=== PATIENT | female | born 1965 | race Caucasian/White ===

== ENCOUNTER → 2022-03-10 10:55 | Outpatient (CLI) | payer OTHER, SELFPAY ==
--- NOTE | ~2022-03-10 | US_ITS ---
EXAMINATION: US carotid duplex BI DATE: 03/10/2022 12:10 INDICATION: Occlusion and stenosis of unspecified carotid artery on outside institution imaging TECHNIQUE: Grayscale, color Doppler, and pulsed Doppler images of the cervical carotid arteries were obtained. The degree of vessel stenosis is placed in one of the following categories: normal, <50%, 5 0-69%, >=70% but less than near-occlusion, near-occlusion, or total occlusion. Note that percent sten osis relative to normal distal artery lumen diameter is indirectly measured from velocity measurement s as described by Derek, et al. Radiology 2003; 229:340-346. COMPARISON: None. FINDINGS: RIGHT: The right common carotid artery (CCA) peak systolic velocity (PSV) is 50 cm/s. The right internal car otid artery (ICA) PSV is 75 cm/s. The right ICA end-diastolic velocity (EDV) is 30 cm/s. The right IC A/CCA PSV ratio is 1.5. Grayscale and color Doppler images yield an estimate of <50% diameter reducti on from plaque in the ICA. The external carotid artery (ECA) PSV is 78 cm/s. There is antegrade flow in the right vertebral artery. LEFT: The left CCA PSV is 60 cm/s. The left ICA PSV is 73 cm/s. The left ICA EDV is 17 cm/s. The left ICA/C CA PSV ratio is 1.2. Grayscale and color Doppler images yield an estimate of <50% diameter reduction from plaque in the ICA. The ECA PSV is 98 cm/s. There is antegrade flow in the left vertebral artery. IMPRESSION: 1. <50% stenosis in the right internal carotid artery. 2. <50% stenosis in the left internal carotid artery. Reviewed, dictated and finalized at location A. BRUSHER MACHINE
--- NOTE | ~2022-03-10 | MR_ITS ---
EXAMINATION: MR cervical spine wo con DATE: 03/10/2022 11:36 INDICATION: Cervical radiculopathy. Neck pain radiating to the left arm. TECHNIQUE: Magnetic resonance imaging (MRI) of the cervical spine was performed without intravenous c ontrast. Sequences included sagittal T2-weighted FSE, sagittal T2-weighted FS FSE, sagittal T1-weight ed FSE, axial MERGE, and axial T2-weighted FSE. COMPARISON: None FINDINGS: There is 2 mm retrolisthesis of C3 on C4, C4 on C5, and C5 on C6. There is 7 mm anterolisth esis of C7 on T1. There are changes of anterior fusion procedure at C7-T1. There is severely decrease d disc height at C3-C4 and C4-C5 and moderately decreased disc height at C5-C6 and C6-C7 with endplat e remodeling. The spinal cord signal intensity is normal. The following disc levels are specifically discussed: C2-C3: The disc does not extend beyond the endplate margin. There is mild left uncovertebral joint os teoarthritis. There is mild right and severe left facet joint osteoarthritis. There is mild left neur al foraminal stenosis. There is no central canal stenosis. C3-C4: The disc is bulging. There is severe bilateral uncovertebral joint osteoarthritis. There is mi ld bilateral facet joint osteoarthritis. There is moderate right and mild left neural foraminal steno sis. There is mild central canal stenosis. C4-C5: The disc is bulging. There is severe bilateral uncovertebral joint osteoarthritis. There is mo derate bilateral facet joint osteoarthritis. There is moderate bilateral neural foraminal stenosis. T here is mild central canal stenosis. C5-C6: The disc is bulging. There is severe bilateral uncovertebral joint osteoarthritis. There is se manuel bilateral facet joint osteoarthritis. There is moderate bilateral neural foraminal stenosis. The re is mild central canal stenosis. C6-C7: The disc is bulging. There is severe bilateral uncovertebral joint osteoarthritis. There is se manuel bilateral facet joint osteoarthritis. There is moderate bilateral neural foraminal stenosis. The re is mild central canal stenosis. C7-T1: There is severe bilateral uncovertebral joint hypertrophy. There is severe bilateral facet eleuterio nt osteoarthritis. There is moderate right and severe left neural foraminal stenosis. There is mild c entral canal stenosis. IMPRESSION: 1. Severe cervical spondylosis. 2. Anterior fusion procedure at C7-T1. Reviewed, dictated and finalized at location E. [facility] FRAME OPERATOR
== END ==
PROVIDERS: PCP Internal Medicine; Visit Provider Nurse Practitioner
DX: M47.812 Spondylosis without myelopathy or radiculopathy, cervical region (principal); M54.12 Radiculopathy, cervical region; I65.23 Occlusion and stenosis of bilateral carotid arteries; Z98.1 Arthrodesis status
CPT/HCPCS: 72141; 93880

== ENCOUNTER 2024-07-25 13:45 | Outpatient (CLI) | payer BC, SELFPAY ==
--- NOTE | ~2024-07-25 | XR_ITS ---
XR hip RT min 2V 07/25/2024 14:35 Indication: Right hip pain Procedure: 2 views right hip Comparison: No prior studies for comparison. Findings: There is anatomic alignment. No significant joint space narrowing. No fracture or traumatic malalignment. No focal soft tissue abnormality. No foreign bodies. Impression: 1: No significant bone or joint abnormality. Reviewed, dictated and finalized at location A. Impression: 1: No significant bone or joint abnormality.
--- NOTE | ~2024-07-25 | US_ITS ---
EXAM: Focused ultrasound examination of the soft tissues of the right lower extremity HISTORY: R22.9 - Localized swelling, mass and lump, unspecified TECHNIQUE: Sonographic evaluation of the soft tissues of the right lower extremity were performed ass essing grayscale appearance and color Doppler flow. COMPARISON: None. FINDINGS: Sonographic evaluation of the soft tissues of the right lower extremity demonstrate 3 distinct areas of palpable concern. Within the first area of palpable concern along the proximal medial bony prominence just below right knee is a well-circumscribed focus of increased echogenicity measuring 4.3 x 4.7 x 2.4 mm, consistent with a small lipoma. Within the second area of palpable concern along the posterior lower leg, are benign fibrofatty and f ibromuscular elements without a cystic or solid lesion of concern. Within the third area of palpable concern along the lateral right thigh no sonographic abnormality is appreciated. IMPRESSION: No sonographic abnormality is appreciated within the lateral right thigh or the posterior lower leg o n focused ultrasound examination. Subcentimeter lipoma along the anterior medial margin of the right lower leg. Reviewed, dictated and finalized at location A. IMPRESSION: No sonographic abnormality is appreciated within the lateral right thigh or the posterior lower leg on focused ultrasound examination. Subcentimeter lipoma along the anterior medial margin of the right lower leg.
--- NOTE | ~2024-07-25 | US_ITS ---
EXAMINATION: US venous doppler LE RT DATE: 07/25/2024 14:39 INDICATION: Right lower extremity discomfort TECHNIQUE: Grayscale ultrasound images without and with compression and Doppler ultrasound images of the right lower extremity veins were obtained. COMPARISON: None. FINDINGS: The visualized portions of right common femoral vein, profunda (deep) femoral vein, femoral vein, pop liteal vein, peroneal veins, posterior tibial veins, and greater saphenous vein outflow are patent. Within the right popliteal fossa is a well-circumscribed anechoic avascular focus measuring 21 mm for which a Funes's cyst is suspected. IMPRESSION: No deep venous thrombosis. Right-sided Funes's cyst cyst. Reviewed, dictated and finalized at location A.
== END 2024-07-25 13:46 | disposition home or self-care (01) ==
PROVIDERS: PCP Internal Medicine; Visit Provider Clinical Nurse Specialist
DX: D17.23 Benign lipomatous neoplasm of skin and subcutaneous tissue of right leg (principal); M71.21 Synovial cyst of popliteal space [Baker], right knee; M25.551 Pain in right hip
CPT/HCPCS: 73502; 76882; 93971

== ENCOUNTER 2024-09-27 14:50 | Outpatient (CLI) | payer BC, SELFPAY ==
--- NOTE | ~2024-09-27 | MR_ITS ---
MRI of the brain Clinical History: Unspecified signs and symptoms of nervous system Technique: Axial and sagittal T1-weighted images were acquired. These were followed by axial T2-weigh edward, diffusion weighted, gradient, and FLAIR images. Following intravenous administration of 12 cc Pr oHance gadolinium, T1-weighted fat-sat imaging was performed in the axial and sagittal planes. Findings: No abnormal signal seen in the brain parenchyma. No acute infarct, intracranial hemorrhage, or mass lesion. Ventricles and subarachnoid spaces are unremarkable. Orbits are unremarkable. Paranasal sinuses and m astoid air cells are clear. Major intracranial flow voids are intact. Sagittal midline structures are intact. No abnormal postcontrast enhancement identified. IMPRESSION: Normal exam. Reviewed, dictated and finalized at location M. IMPRESSION: Normal exam.
== END 2024-09-27 14:51 | disposition home or self-care (01) ==
PROVIDERS: PCP Internal Medicine; Visit Provider Clinical Nurse Specialist
DX: R29.90 Unspecified symptoms and signs involving the nervous system (principal)
CPT/HCPCS: 70553; A9579

== ENCOUNTER 2024-10-17 08:42 | Outpatient (CLI) | payer BC, SELFPAY ==
--- NOTE | ~2024-10-17 | MR_ITS ---
MRI of the lumbar spine Clinical History: Back pain Technique: Axial T2-weighted images, and sagittal T1-weighted, T2-weighted, and T2 fat-sat images wer e acquired. Findings: No acute fracture seen. There is 4 mm anterolisthesis of L2 over L3. No suspicious bone mar row signal abnormality seen. At L1-L2, there is minimal disc bulge with mild facet arthropathy. No central canal stenosis. There i s minimal left neural foraminal narrowing. Right neural foramen preserved. At L2-L3, there is moderate to advanced degenerative disc narrowing. There is diffuse disc bulge/unco vering with severe facet arthropathy. No enrique central canal stenosis. There is severe left neural fo raminal narrowing and mild to moderate right neural foraminal narrowing. At L3-L4, there is moderate degenerative disc narrowing. There is diffuse disc bulge with severe face t arthropathy. No central canal stenosis. There is severe right neural foraminal narrowing. Left neur al foramen preserved. At L4-L5, there is no significant disc bulge or herniation. There is moderate facet arthropathy. No c entral canal stenosis or left neural foraminal narrowing. There is mild right neural foraminal narrow ing. At L5-S1, there is minimal disc bulge with moderate to advanced facet arthropathy. No central canal s tenosis. There is mild right neural foraminal narrowing. Left neural foramen preserved. Paravertebral soft tissues are unremarkable. Impression: Moderate degenerative spondylosis, worst at L2-L3 and L3-L4. 4 mm anterolisthesis of L2 over L3. Reviewed, dictated and finalized at [facility]. Impression: Moderate degenerative spondylosis, worst at L2-L3 and L3-L4. 4 mm anterolisthesis of L2 over L3.
--- NOTE | ~2024-10-17 | CT_ITS ---
EXAMINATION: CT cervical spine wo con DATE: 10/17/2024 09:14 INDICATION: cervical stenosis TECHNIQUE: Computed tomography (CT) of the cervical spine was performed without intravenous contrast. Automated exposure control and iterative reconstruction technique were employed. The dose-length pro duct was 266.99 mGy-cm. COMPARISON: MR C-spine 03/10/2022. FINDINGS: Uncomplicated ACDF hardware spanning C3-5 and C7-T1, interbody devices in good position. Posterior fu aroldo hardware spanning C2-T4. No hardware fracture or abnormal perihardware lucency in the posterior hardware. The right T2 pedicle screw projects minimally beyond the cortex, of doubtful clinical signi ficance. The bilateral pedicle screws at C2 projects minimally into the C1-C2 disc space. The bilater al pedicle screws at C3-C6 project beyond the cortex with variable involvement of the bilateral vascu lar foramen and neural foramen, with the screws lying along the lateral aspect of the vertebral arter ies at multiple levels. Stable grade 2 anterolisthesis at C6-7. Mild degenerative change at the atlan todental interval. Posterior decompression at C7-T2. Extensive bone graft material noted posteriorly. Visualized lung parenchyma is clear. IMPRESSION: No acute fracture or traumatic malalignment in the cervical spine. No severe central canal narrowing. Anterior cervical fusion hardware at C3-5 and C7-T1, without CT evidence of hardware related complica tion. Posterior cervicothoracic fusion spanning C2-T4. The bilateral pedicle screws at C2 projects minimall y into the C1-2 disc space. The bilateral pedicle screws at C3-C6 project beyond the cortex with vari able involvement of the bilateral vascular and neural foramen. Consider CT angiography of the neck to evaluate the vertebral arteries. Reviewed, dictated and finalized at [facility]. IMPRESSION: No acute fracture or traumatic malalignment in the cervical spine. No severe central canal narrowing. Anterior cervical fusion hardware at C3-5 and C7-T1, without CT evidence of heron dware related complication. Posterior cervicothoracic fusion spanning C2-T4. The bilateral pedicle screws a t C2 projects minimally into the C1-2 disc space. The bilateral pedicle screws at C3-C6 project beyond the cortex with variable involvement of the bilateral v ascular and neural foramen. Consider CT angiography of the neck to evaluate the vertebral arteries.
== END 2024-10-17 08:43 | disposition home or self-care (01) ==
LOC: GOSHIMG 08:42
DX: M47.816 Spondylosis without myelopathy or radiculopathy, lumbar region (principal); M43.16 Spondylolisthesis, lumbar region; Z98.1 Arthrodesis status; Z96.698 Presence of other orthopedic joint implants
CPT/HCPCS: 72125; 72148

== ENCOUNTER 2024-11-19 09:41 | Outpatient (CLI) | payer BC, SELFPAY ==
--- NOTE | 2024-11-19 09:20 | NEURO_ITS ---
Impression: # Complains of hand weakness status post neck surgery # Bilateral Carpal Tunnel Syndrome, right more than left. # Bilateral Ulnar Neuropathy across the elbows. # Abnormal Needle/ EMG exam proximally/distally suggestive of higher involvement as well. # Clinical correlation recommended. Nerve Conduction Studies ?Stim Site NR Peak (ms) P-T Amp (?V) Site1 Site2 Delta-P (ms) Dist (cm) Colby (m/s) Left Median Anti Sensory (2-3nd Digit) Wrist ? 3.3 64.8 Wrist 2-3nd Digit 3.3 14.0 42 Wrist ? 3.5 48.1 Wrist 2-3nd Digit 3.3 14.0 42 Right Median Anti Sensory (2-3nd Digit) Wrist ? 3.1 61.7 Wrist 2-3nd Digit 3.1 14.0 45 Wrist ? 3.3 63.2 Wrist 2-3nd Digit 3.1 14.0 45 Left Radial Anti Sensory (Base 1st Digit) Wrist ? 1.8 62.6 Wrist Base 1st Digit 1.8 0.0 Right Radial Anti Sensory (Base 1st Digit) Wrist ? 1.8 18.7 Wrist Base 1st Digit 1.8 0.0 Left Ulnar Anti Sensory (5th Digit) Wrist ? 2.3 63.1 Wrist 5th Digit 2.3 14.0 61 Right Ulnar Anti Sensory (5th Digit) Wrist ? 2.5 44.8 Wrist 5th Digit 2.5 14.0 56 ?Stim Site NR Onset (ms) O-P Amp (mV) Site1 Site2 Delta-0 (ms) Dist (cm) Colby (m/s) Left Median Motor (Abd Poll Brev) Wrist ? 5.7 0.4 Elbow Wrist 4.4 24.0 55 Elbow ? 10.1 0.5 Right Median Motor (Abd Poll Brev) Wrist ? 4.0 3.1 Elbow Wrist 5.1 25.0 49 Elbow ? 9.1 2.5 Left Ulnar Motor (Abd Dig Minimi) Wrist ? 3.1 1.6 A Elbow Wrist 4.8 25.0 52 A Elbow ? 7.9 1.0 B Elbow Wrist 3.2 19.0 59 B Elbow ? 6.3 1.1 Right Ulnar Motor (Abd Dig Minimi) Wrist ? 2.8 2.5 A Elbow Wrist 5.0 26.0 52 A Elbow ? 7.8 3.1 B Elbow Wrist 3.6 18.0 50 B Elbow ? 6.4 3.9 F Wave Studies ?NR F-Lat (ms) L-R F-Lat (ms) Left Median (Mrkrs) (Abd Poll Brev)??? NO RESPONSE NR Right Median (Mrkrs) (Abd Poll Brev) ? 30.76 Left Ulnar (Mrkrs) (Abd Dig Min)??? NO RESPONSE NR Right Ulnar (Mrkrs) (Abd Dig Min) ? 29.28 Electromyography ?Side Muscle Nerve Root Ins Act Fibs Amp Dur Recrt Comment Right 1stDorInt Ulnar C8-T1 Nml Nml Nml >12ms +2 Right ABD Dig Min Ulnar C8-T1 Nml Nml Nml >12ms +2 Right Abd Poll Brev Median C8-T1 Nml Nml Nml >12ms +2 Right Abd Poll Long Radial (Post Int) C7-8 Nml Nml Nml Nml Nml Right Biceps Musculocut C5-6 Nml Nml Nml >12ms +1 Right BrachioRad Radial C5-6 Nml Nml Nml >12ms +1 Right Deltoid Axillary C5-6 Nml Nml Nml >12ms +1 Right Ext Digitorum Radial (Post Int) C7-8 Nml Nml Nml Nml Nml Right Ext Indicis Radial (Post Int) C7-8 Nml Nml Nml Nml Nml Right FlexPolLong Median (Ant Int) C7-8 Nml Nml Nml Nml Nml Right PronatorTeres Median C6-7 Nml Nml Nml >12ms +1 Right Triceps Radial C6-7-8 Nml Nml Nml >12ms +2 Left 1stDorInt Ulnar C8-T1 Nml Nml Nml >12ms +2 Left ABD Dig Min Ulnar C8-T1 Nml Nml Nml >12ms +2 Left Abd Poll Brev Median C8-T1 Nml Nml Nml >12ms +1 Left Abd Poll Long Radial (Post Int) C7-8 Nml Nml Nml Nml Nml Left Biceps Musculocut C5-6 Nml Nml Nml Nml Nml Left BrachioRad Radial C5-6 Nml Nml Nml >12ms +1 Left Deltoid Axillary C5-6 Nml Nml Nml Nml Nml Left Ext Digitorum Radial (Post Int) C7-8 Nml Nml Nml Nml Nml Left Ext Indicis Radial (Post Int) C7-8 Nml Nml Nml Nml Nml Left FlexPolLong Median (Ant Int) C7-8 Nml Nml Nml Nml Nml Left PronatorTeres Median C6-7 Nml Nml Nml >12ms +1 Left Triceps Radial C6-7-8 Nml Nml Nml >12ms +1
--- OUTSIDE RECORDS SUMMARY | 2024-11-19 10:31 | XMS_ITS | Encounter Summary ---
Author Organization [facility] Address [address] [place] [address] Phone Care Team Providers Care Landscape Engineer Name Role Phone Marcelino Fuller MD Unavailable [phone] David Kapadia DO Primary Care Provider [phone] Rosalinda Lima MD Unavailable Jillian Ji MD Unavailable Encounter Details Date Type Department Care Team (Late st Contact Info) Description 08/04/[address] Medical Office [address] [place] [address] Suman Silvestre MD [id number] [address] Social History Tobacco Use Types Packs/Day Years Used Date Smoking Tobacco: Never Smokeless Tobacco: Never Alcohol Use Standard Drinks/Week Comments Yes 1 (1 standard drink = 0.6 oz pur e alcohol) Occasional AUDIT-C Answer Date Recorded Q1: How often do you have a drink containing alc ohol? Monthly or less 04/14/2022 Q2: How many drinks containi ng alcohol do you have on a typical day when you are drinking? 1 or 2 04/14/2022 Q3: How often do you have si x or more drinks on one occasion? 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 HOME TUTOR Gender Identity Female 01/22/2020 9:25 AM CDT Sexual Orientation Straight 09/22/2018 10 :05 AM CDT documented as of this encounter Plan of Treatment Not on file documented as of this encounter Visit Diagnoses Not on filedocumented in this encounter Additional Health Concerns Infection Onset Date Last Indicated Resolved Time COVID: Suspected 12/25/2022 12/25/2022 12/25/2022 11:04 AM CDT documented as of this encounter Care Teams Landscape Engineer Relationship Specialty [place] [id number] [place] [id number] PCP - General 09/22/20 [place] [id number] [place] [id number] Referring Physician Urology 10/17/18 [place] [address] [place] [address] Military [employer] Obstetrics and Gynecology 05/20/21 [place] [id number] [place] [id number] Consulting Physician Urology 05/10/24 documented as of this encounter
--- OUTSIDE RECORDS SUMMARY | 2024-11-19 10:31 | XMS_ITS | Clinical Summary ---
Author Organization [facility] Address [address] [place] [address] Care Team Providers Care Psych Specialist Name Role Phone Marcelino Fuller MD Unavailable [phone] David Kapadia DO Primary Care Provider [phone] Rosalinda Lima MD Unavailable Jillian Ji MD Unavailable Allergies Active Allergy Reactions Criticality Noted Date Comments Nitrofurantoin Monohyd/M-Cryst Vomiting High 09/29 Medications citalopram (CeleXA) 40 mg tablet Take 1 tablet (40 mg total) by mouth every morning Active acidophilus-pec tin, citrus 100 million cell-10 mg capsuleIndicati ons:supplement Take 1 capsule by mouth every morning 5 Active calcium carb-mag hydrox-simeth 1,200 mg-270 mg -80 mg/10 mL suspensionIndic ations:calcium supplement Take 1 tablet by mouth every morning 5 Active cholecalciferol (Vitamin D3) 5,000 unit tabletIndicatio ns:Prevention of Vitamin D Deficiency Take 1 tablet (5,000 Units total) by mouth every morning 5 Active cyanocobalamin (vitamin B-12) 1,000 mcg tabletIndicatio ns:supplement Take by mouth every morning 5 Active vitamin B complex capsuleIndicati ons:Vitamin Deficiency Prevention Take 1 capsule by mouth every morning 5 Active losartan (COZAAR) 50 mg tablet Take 1 tablet (50 mg total) by mouth nightly 5 Active metoprolol XL (TOPROL-XL) 50 mg extended release tablet Take 1 tablet (50 mg total) by mouth every morning 5 Active acetaminophen 500 mg capsuleIndicati ons:Pain Take 2 capsules (1,000 mg total) by mouth every 6 (six) hours Active lidocaine (LIDODERM) 5 % Place 2 patches on the skin daily for 12 hours Remove & discard patch within 12 hours or as directed by MD. Active polyethylene glycol (MIRALAX) 17 gram/dose bulk powderIndicatio ns:constipation Take 17 g by mouth daily 5 Active Additional Information Patient not taking.Reported on 11/14/2024 cyclobenzaprine (FLEXERIL) 5 mg tabletIndicatio ns:Muscle Spasm Take 1 tablet (5 mg total) by mouth every 8 (eight) hours as needed for muscle spasms 30 tablet 5 Active senna-docusate (PERICOLACE) 8.6-50 mgIndications:c onstipation Take 2 tablets by mouth 2 (two) times a day 60 tablet 5 Active Additional Information Patient not taking.Reported on 11/14/2024 oxyCODONE (ROXICODONE) 5 mg immediate release tabletIndicatio ns:Pain Take 1 tablet (5 mg total) by mouth every 4 (four) hours as needed for pain 42 tablet 5 Active Additional Information Patient not taking.Reported on 11/14/2024 gabapentin (NEURONTIN) 100 mg capsule Take 1 capsule (100 mg total) by mouth 3 (three) times a day 90 capsule 11 5 10/30/19 26 Active sulfamethoxazol e-trimethoprim (BACTRIM DS) 800-160 mg per tablet Take 1 tablet by mouth 2 (two) times a day 5 Active Active Problems Problem Noted Date Diagnosed Date Acute urinary retention 08/14/2024 Assessment & Plan (08/14/2024 3:03 PM CDT): --Failed void trial on 08/09, espinal replaced during ACT 08/09 for acute onset of diaphoresis and paleness and nonspecific neuro changes. --Removed espinal again 08/13 with positive void Urinary tract infection 08/14/2024 Assessment & Plan (08/15/2024 9:12 AM CDT): --UA positive on 08/12, UC performed --IV Ceftriaxone started 08/12 x 3 days --UC positive for E. 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 3% HTF 100ml given x1. BMP q8. Strict I & O. --Espinal catheter replaced 08/09 --08/13 fluid restriction lifted, Na+ normalized --Na levels changed to daily draws 08/14 --Na level stable at discharge: 138 Acute on chronic back pain 08/08/2024 Assessment & Plan (08/14/2024 3:06 PM CDT): --08/09 AIRPORT OPERATIONS SPECIALIST dc'd used 7/7 times overnight. Not using oxy, reduced dose. Dc'd robaxin in afternoon due to somnolence. Easily arousable. Per pt doesn't do well with Robaxin, okay on Flexeril. --Pain currently controlled on Acetaminophen 1,000 mg q6h, Lido patches daily, Flexeril 5 mg q8h PRN, Oxycodone 5 mg q4h PRN Cervical stenosis of spinal canal 08/06/2024 Assessment & Plan (08/15/2024 12:10 PM CDT): --Status post C7-T2 decompression, C2-T4 PCDF on 08/07, closed with DB, drains x 2 --Post-operative imaging obtained 08/07 --Therapy recommends dispo to home with --Patient to follow-up with Dr. López outpatient --Bone stimulator tasked, continue seeing bone health Cervical radiculopathy 05/31/2023 Spondylolysis of cervical region 02/21/2023 Right calf pain 11/18/2022 Age-related osteoporosis wit hout current pathological fracture 07/07/2021 MGUS (monoclonal gammopathy of unknown significa nce) 12/12/2020 Hypercalcemia 12/12/2020 Gastroesophageal reflux disease without esophagi tis 05/15/2020 Assessment & Plan (05/15/2020 3:18 PM SR. DIRECTOR PRODUCT MANAGEMENT): Patient is symptomatic with GERD. He has been on Dexilant which helps her however she read there were some side effects and excellent that may affect her osteoporosis. She has an electrical engineer who specialize in osteoporosis advised her to contact electrical engineer regarding this. In the meantime begun discontinued excellent and start on famotidine. 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 DIRECTOR PRODUCT MANAGEMENT): Patient again in have cervical radiculopathy symptoms again. She has surgery August of 2019 with significant relief. Also having radiculopathy in the right lower extremity. She has appointment coming up with her neurosurgeon within the next 3 weeks she will brain to his attention. Assessment & Plan (09/24/2019 3:07 PM CDT): Patient had a anterior cervical diskectomy on July 29, 2019 patient is doing very well at this time. Grade 1 degenerative spondylolisthesis at C7-T1 04/18/2019 History of depression 12/30/2018 Assessment & Plan (12/30/2018 3:51 PM CDT): Patient depression has improved she is stabilized patient's health is improved no longer has is recurrence bladder problem she is having that she has had some surgical repair. Patient is now living with her ex- who she was to for 20 years and has 3 children by.. Ex- is also patient of mine a both appear to be very comfortable in her present living arrangements. Chronic interstitial cystitis 09/29/2018 Assessment & Plan (12/30/2018 3:52 PM CDT): Patient recently had a bladder repair from her description was a part of her bladder was constantly irritated given her cystitis this part was taken out she had a partial removal of her bladder she colon has the pain and discomfort and hematuria. Fatigue 12/08/2017 Assessment & Plan (12/08/2017 6:15 PM CDT): Patient is feeling fatigue she does have hematuria frequently. she is uncertain if the fatigue is related to her underlying depression. Plans CBC TSH level B12 Hunner's ulcer 09/01/2017 Overview (09/01/2017): Added automatically from request for surgery [id number] Overactive bladder 09/01/2017 Overview (09/01/2017): Added automatically from request for surgery [id number] Assessment & Plan (12/08/2017 6:14 PM CDT): Patient overactive bladder managed by Urology Dr. Dr. Ji. Left hand pain 06/18/2016 Overview (08/27/2016): Hand pain Assessment & Plan (08/12/2024 7:27 AM CDT): S/p left radial arterial line. Hand slightly swollen 4/5 in strength with normal cap refill. Warm to touch. Pt c/o pain due to left hand paraesthesia -08/08 LUE ultrasound with radial and ulner view, no focal stenosis HTN (hypertension) 03/10/2012 Overview (07/09/2016): Hypertension Assessment & Plan (08/12/2024 7:28 AM CDT): -continue home BB and ARB 08/09 hypertensive this am suspect 2/2 urinary retention. Added PRN hydral, improved in afternoon. -patient normotensive on discharge Assessment & Plan (05/15/2020 3:13 PM SR. DIRECTOR PRODUCT MANAGEMENT): Hypertension well controlled patient is tolerating medications. Does mention she has occasional tickle in the throat less than once a day. This symptom can be caused by lisinopril right now is tolerable so we will not change medications. Assessment & Plan (02/12/2020 4:14 PM SR. DIRECTOR PRODUCT MANAGEMENT): Patient has been checking her blood pressure at home last week was consistently running 140-150 systolic diastolic 98-101 patient was symptomatic with headaches she has not had symptoms for least 3 days. This patient is on metoprolol XL 50 mg daily. At this time I would like for the patient keep her blood pressure log sheet directions are blood pressure twice a day 2 weeks no results back to me. Will discuss results within 3 days of arrival of the log sheet. If patient is symptomatic headaches nausea chest pain she needs to call me. Her blood pressure today is 146/92. No change in medication. Assessment & Plan (09/24/2019 3:00 PM CDT): Hypertension very well controlled no change in therapy patient is tolerating medications. Assessment & Plan (12/30/2018 3:52 PM CDT): Hypertension well controlled on present medication no change in therapy. Patient has no side effects from medication. Assessment & Plan (12/08/2017 6:15 PM CDT): Hypertension is unchanged. Continue current treatment regimen. Dietary sodium restriction. Continue current medications. Blood pressure will be reassessed at the next regular appointment. Resolved Problems Problem Noted Date Diagnosed Date Resolved Date Hypernatremia 08/08/2024 08/09/2024 Assessment & Plan (08/08/2024 4:23 PM CDT): Suspect due to hypovolemia. Encouraged PO intake -Monitor BMP Positive Anaplasma serology 09/24/2019 03/14/2020 Assessment & Plan (09/24/2019 4:29 PM CDT): Rheumatological labs ordered In August 2019 because of joint pains. Patient is not symptomatic at this time. Patient's BUDDY was 1:320 remainder of lab was normal. Patient advised me that she has been told it past that she has a diagnosis of Sjogren syndrome. Hospital patient's bladder issues could have some relationship to her possible Sjogren syndrome Upper abdominal pain 09/24/2019 020 Assessment & Plan (09/24/2019 4:30 PM CDT): Patient has some bloating and upper done on pain med to give trial of Dexilant next 2 weeks this helps her she can follow-up with omeprazole.. UTI (urinary tract infection) 01/10/2019 03/14/2020 Annual physical exam 12/08/2017 020 Assessment & Plan (09/24/2019 2:59 PM CDT): History and physical completed health risk assessment health maintenance addressed. Assessment & Plan (12/30/2018 3:55 PM CDT): Patient annual exam is completed she will be seeing her reports developer next month. Remainder of the issues recommendations for her health maintenance health risk assessment have been side is 5/completed. Patient is doing much better than she has in the last few years. Much of this is due to the a treatment of her recurrence interstitial cystitis. She has not had a partial bladder removal. Assessment & Plan (12/08/2017 6:16 PM CDT): 52-year-old lady here for annual exam. She has significant health problems of overactive bladder associated back pain and hematuria which is managed by Urology patient receives Botox injections every few months for bladder. Patient has significant depression medications not effective at this time. Major depressive disorder 12/08/2017 Assessment & Plan (12/08/2017 6:13 PM CDT): . Patient is depression she is presently taking citalopram 40 mg daily lately she is taking 2 tablets 80 mg per day. Patient's states she did this because of intense anger she has had episodes she has had intense anger over exam not very important this will last a 8-24 hours she will isolate the several months when she becomes very angry. Depression because of problems with her bladder. She makes it clear she would like to be to work be more independent but her physical health prohibits this referring to her bladder problems. This time I am discontinuing escitalopram. I am going to start her on Viibryd patient give me a progress report in a few weeks Shoulder pain 06/18/2016 09/29/2018 Overview (08/27/2016): Shoulder pain Encounters Date Type Department Care Team Description 11/14/2024 10:45 AM CDT Office Visit [facility] Hematology [facility] Floor [address] [place] [address] Rutsam Key MD MGUS (monoclonal gammopathy of unknown significance) 11/13/2024 Telephone [facility] [address] [place] [address] for Advanced Medicine [address] [address] Lanette Hogan MD Scheduling Appointments 10/29/2024 2:30 PM CDT Office Visit [facility] Neurosurgery [address] [place] [address] Office [facility] [address] [place] [phone] Sabrina López MD Lumbar radiculopathy (Primary Dx) 10/29/2024 Telephone [facility] Neurosurgery [address] [place] [address] Office [place] [address] [place] [phone] Sabrina López MD 10/22/2024 11:07 AM CDT - 10/22/2024 11:59 PM CDT Hospital Encounter [facility] [address] [place] [address] Discharge Disposition: Discharge to home or self care 10/22/2024 11:05 AM CDT - 10/22/2024 11:59 PM CDT Hospital Encounter [facility] [address] [place] [address] Discharge Disposition: Discharge to home or self care 10/16/2024 Telephone [facility] Neurosurgery [address] [facility] Office Building [address] [place] [address] Sabrina López MD 10/08/2024 Telephone [facility] Scheduling [address] [place] [address] Amy Dc 10/04/2024 3:15 PM CDT Office Visit [address] Office [facility] 4 [address] [place] [address] Sabrina López MD Cervical stenosis of spinal canal (Primary Dx) 10/04/2024 2:44 PM CDT - 10/04/2024 11:59 PM CDT Hospital Encounter [facility] [address] [place] [address] [address] [place] [phone] Cervical stenosis of spinal canal Discharge Disposition: Discharge to home or self care 10/04/2024 Orders Only [facility] Neurosurgery [address] [place] [address] Office [facility] [address] [place] [address] Sabrina López MD Cervical stenosis of spinal canal (Primary Dx); Low back pain, non-specific; 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 09/27/2024 Orders Only [facility] Neurosurgery [address] [place] [address] Office [facility] [address] [place] [phone] Sabrina López MD Cervical stenosis of spinal canal (Primary Dx) 08/20/2024 Orders Only [facility] Neurosurgery [address] [place] [address] Office [facility] [address] [place] [phone] Sabrina López MD Cervical stenosis of spinal canal (Primary Dx) from Last 3 Months Immunizations Immunization Administration Dates Next Due Influenza, Quadrivalent, Spl it, Preservative Free, Intramuscular 02/01/2020,05/10/2018 Influenza, Unspecified 02/01/2020 Pfizer SARS-CoV-2 Monovalent Vaccination (12+ Yrs) PURPLE 06/21/2020,05/31/2020 Tdap 12/22/2018 Surgical History Surgery Date Site/Laterality Comments CYSTOSCOPY multiple - with botox injections SHOULDER OPEN ROTATOR CUFF REPAIR 04/04/2016 - 04/03/2017 Right right CARPAL TUNNEL RELEASE 04/04/2007 - 04/03/2008 Left Left carpal tunnel syndrome: Left carpal tunnel release SECTION C section 1993, 1997 HYSTERECTOMY 04/04/1998 - 04/03/1999 Hysterectomy 1999 CARPAL TUNNEL RELEASE 04/04/2003 - 04/03/2004 Right Right carpal tunnel syndrome: Right carpal tunnel release OOPHORECTOMY BLADDER SURGERY 10/02/2018 - 11/01/2018 removed ulcered area CYSTECTOMY 10/16/2018 partial BLADDER SURGERY 03/04/2023 bx, kenalog & Botox CERVICAL SPINE SURGERY x 2 (2016, 2018) SPINE SURGERY 08/07/2024 C2-T4 posterior cervical decompression and fusion Medical History Medical History Date Comments Hypertension Fibrocystic breast Depression Chronic interstitial cystitis 09/29/2018 Left carpal tunnel syndrome Right carpal tunnel syndrome Rig ht carpal tunnel syndrome Major depressive disorder 12/08/2017 Urinary tract infection Neuropathy PONV (postoperative nausea and vomiting) x 1 episode ~30 yrs ago, no issues since. Arthritis Osteoporosis Cervical stenosis of spine Radiculopathy Spondylolisthesis of cervical region GERD (gastroesophageal reflux disease) OAB (overactive bladder) Family History Medical History Relation Name Comments Cancer Father Hypertension Father Hypertension; Arthritis Mother Arthritis; Diabetes Mother Diabetes mellit us; Heart attack Mother Hypertension Mother Hypertension; Lupus Mother Systemic lupus erythematosus; Osteoporosis Mother Other Mother Raynaud's; Breast cancer Sister Anesthesia problems Neg Hx Broken bones Neg Hx Hip fracture Neg Hx Kyphosis Neg Hx Malig Hypertension Neg Hx Malig Hyperthermia Neg Hx Ovarian cancer Neg Hx Pseudochol deficiency Neg Hx Scoliosis Neg Hx Relation Name Status Comments Father (Age 59) Mother Sister Alive Social History Tobacco Use Types Packs/Day Years Used Date Smoking Tobacco: Never Passive Smoke Exposure: Past Smokeless Tobacco: Never Tobacco Cessation:Counseling Given: No Alcohol Use Standard Drinks/Week Comments Yes 1 (1 standard drink = 0.6 oz pur e alcohol) Occasional AUDIT-C Answer Date Recorded Q1: How often do you have a drink containing alc ohol? Monthly or less 08/07/2024 Q2: How many drinks containi ng alcohol do you have on a typical day when you are drinking? 1 or 2 08/07/2024 Q3: How often do you have si x or more drinks on one occasion? Never 08/07/2024 PHQ-2 Answer Date Recorded PHQ-2 Total Score (If total score is 3 or more points, staff should administer the PHQ-9) 0 02/12/2020 Personal Safety Answer Date Recorded Have you ever been in or are you currently in a harmful physical or emotional relationship or is someone making you feel afraid or unsafe? Denies 08/07/2024 Comments No Sex and Gender Information Value Date Recorded Sex Assigned at Not on file Legal Sex Female 3:47 PM SR. DIRECTOR PRODUCT MANAGEMENT Gender Identity Female 01/22/2020 9:25 AM CDT Sexual Orientation Straight 09/22/2018 10 :05 AM CDT Obstetrics History Para Term AB IAB SAB Ectopic Multiple Livin g Live Births 3 3 3 3 Date Outcome GA Total Labor Labor//3rd Weight Sex Type Anes PTL Malinda A1 A5 Name Clin Term Term Term Last Filed Vital Signs Vital Sign Reading Time Taken Comments Blood Pressure 135/84 11/14/2024 10:59 AM CDT Pulse 77 11/14/2024 10:59 AM CDT Temperature 35.9 C (96.7 F) 11/14/2024 10:59 AM CDT Respiratory Rate 18 11/14/2024 10:59 AM CDT Oxygen Saturation 98% 11/14/2024 10:59 AM CDT Inhaled Oxygen Concentration - - Weight 60.8 kg (134 lb) 11/14/2024 10:59 AM CDT Height 148.6 cm (4' 10.5) 08/07/2024 1:55 AM CD T Body Mass Index 27.53 08/07/2024 1:55 AM CDT Plan of Treatment Health Maintenance Due Date Last Done Comments Hepatitis B Screening 06/11/1981 Zoster Vaccine (1 of 2) 06/11/2013 Depression Screening 02/11/2021 02/12/2020, 12/22/2018, 12/08/2017 Regular Well Visit/Exam 18-64 05/20/2022 05/20/2021, 09/24/2019, 12/22/2018, Additional history exists Colon Cancer Screening-Colonoscopy 10/10/2023 10/09/2013, 10/09/2013 Covid-19 Vaccine ( season) 2023 06/21/2020, 05/31/2020 Breast Cancer Screening-Mammogram 08/10/2024 08/11/2023, 05/17/2022, 05/13/2021, Additional history exists Influenza Vaccine (#1) 2024 , 02/01/2020, 05/10/2018 DTaP/Tdap/Td Vaccine (2 - Td or Tdap) 12/22/2028 12/22/2018 Colon Cancer Screening-CT Colonography Discontinued 10/09/2013, 10/09/2013 Colon Cancer Screening-DNA Stool Discontinued 10/09/2013, 10/09/2013 Colon Cancer Screening-Sigmoidoscopy Discontinued 10/09/2013, 10/09/2013 Colon Cancer Screening-FIT Discontinued 07/29, 07/28/2016, 10/09/2013, Additional history exists Hepatitis C Screening Completed 12/29/2018 Cervical Cancer Screening Discontinued 05/20/2021 Pneumococcal vaccine <65 Aged Out No longer eligible based on patient's age to complete this topic Medical Devices Implanted Type Area Traffic Signal Technician Device Identifier Shelf Expiration Date Model / Serial / Lot Cerapedics Inc 700-025 I Factor Allograft Putty Syringe Graft 2.5cc Bone - [id number] Implanted:Qty : 1 on 08/28/2019 by Chris Mckay MD at [facility] N/A: Spine Cervical Ceraped[employer] Inc 12/05/2021 700-025 / / Scarborough Plate Implanted:Qty : 1 on 08/28/2019 by Chris Mckay MD at [facility] N/A: Spine Cervical Nuvasive Inc Description:18mm Cage Spinal Modulus Cervical [id number] 10 Deg - [id number] Implanted:Qty : 1 on 08/28/2019 by Chris Mckay MD at [facility] [employer] Inc [id number] 10/15/2023 [id number] P2 / / [id number] Nuvasive Creative Spine Tech [id number] Scarborough R 4mm 13mm Self Tap Variable Angle Spine Screw Bone - [id number] Implanted:Qty : 3 on 08/28/2019 by Chris Mckay MD at [facility] N/A: Spine Cervical Nuvasive Inc [id number] / / Nuvasive Creative Spine Tech [id number] Scarborough R 4.5mm 13mm Self Tap Variable Angle Spine Screw Bone - [id number] Implanted:Qty : 1 on 08/28/2019 by Chris Mckay MD at [facility] N/A: Spine Cervical Nuvasive Inc [id number] / / Víctor Biomet Spine Inc Maxan 4mm 14mm Variable Angle Self Drill Spine Screw Bone [id number] - [id number] Implanted:Qty : 4 on 05/31/2023 by Chris Mckay MD at [facility] N/A: Spine Cervical VÍ[employer] [id number] / / Víctor [employer]omet Spine Inc Maxan 4mm 14mm Fix Angle Spine Screw Bone [id number] - [id number] Implanted:Qty : 2 on 05/31/2023 by Chris cMkay MD at [facility] N/A: Spine Cervical [employer] [id number] / / Cerapedics Inc Graft Bone Filler Peptide Enhanced Syr I Factor 1cc Putty 700-010 - [id number] Implanted:Qty : 1 on 05/31/2023 by Chris Mckay MD at [facility] N/A: Spine Cervical Cer[employer] Inc [id number] 09/01/2025 700-010 / / [id number] Glob[employer] Cage Spinal Cervical 7 Degree Acif Hedron [id number] Titanium Porous 1211.4617s - [id number] Implanted:Qty : 1 on 05/31/2023 by Chris Mckay MD at [facility] N/A: Spine Cervical [employer] [id number] 03/17/2033 1211.4617S / / [id number] [employer] Cage Spinal Cervical 7 Degree Acif Hedron [id number] Titanium Porous 1211.4617s - [id number] Implanted:Qty : 1 on 05/31/2023 by Chris Mckay MD at [facility] N/A: Spine Cervical [employer] [id number] 03/17/2033 1211.4617S / / [id number] Víctor [employer] Spine Inc Maxan 26mm Level 2 Spine Cervical Anterior Plate Bone Titanium 14-146096 - [id number] Implanted:Qty : 1 on 05/31/2023 by Chris Mckay MD at [facility] N/A: Spine Cervical [employer] [id number] / / Arthrex Inc Graft Bone Filler Dbm Syringe Pure 10cc Allosync Abs - [id number] - [id number] Implanted:Qty : 1 on 08/07/2024 by Sabrina López MD at [facility] N/A: Spine Cervical [employer] [id number] 01/09/2029 / [id number] / Arthrex Inc Graft Bone Filler Allosync Pure 5cc Putty - [id number] - [id number] Implanted:Qty : 1 on 08/07/2024 by Sabrina López MD at [facility] N/A: Spine Cervical [employer] [id number] 01/09/2029 / [id number] / [employer] Frozen 1-4mm Graft 60ml Bone Cancellous [id number] - [id number] - [id number] Implanted:Qty : 1 on 08/07/2024 by Sabrina López MD at [facility] N/A: Spine Cervical [employer] [id number] 07/06/2027 [id number] / [id number] / Arth[employer] Inc Graft Bone Filler Scaffold Arthrocell Plus 5.0cc Abs-2089-08 - [id number] 50-24 - [id number] Implanted:Qty : 1 on 08/07/2024 by Sabrina López MD at [facility] N/A: Spine Cervical [employer] Inc 08/03/2025 ABS-2089-08 / [id number] / Depuy Synthes Spine Screw Spinal Set Posterior Cervical Solid Symphony Titanium [id number] - [id number] Implanted:Qty : 17 on 08/07/2024 by Sabrina López MD at [facility] N/A: Spine Cervical Depuy Synthes Spine [id number] / / Depuy Spine Screw Spinal Posterior Cervical Polyaxial Threaded Cannulated Symphony 4x22mm [id number] - [id number] Implanted:Qty : 1 on 08/07/2024 by Sabrina López MD at [facility] N/A: Spine Cervical Depuy Spine [id number] / / Depuy Spine Screw Spinal Posterior Cervical Polyaxial Threaded Cannulated Symphony 4x24mm [id number] - [id number] Implanted:Qty : 1 on 08/07/2024 by Sabrina López MD at [facility] N/A: Spine Cervical Depuy Spine [id number] / / Depuy Spine Screw Bone 4.0 Shaft Cannulated Red 4.0x30mm [id number] - [id number] Implanted:Qty : 1 on 08/07/2024 by Sabrina López MD at [facility] N/A: Spine Cervical Depuy Spine [id number] / / Depuy Spine Screw Spinal Posterior Cervical Polyaxial Threaded Cannulated Symphony 3.5x14mm Titanium [id number] - [id number] Implanted:Qty : 2 on 08/07/2024 by Sabrina López MD at [facility] N/A: Spine Cervical Depuy Spine [id number] / / Depuy Spine Screw Spinal Posterior Cervical Polyaxial Threaded Cannulated Symphony 3.5x16mm Titanium [id number] - [id number] Implanted:Qty : 6 on 08/07/2024 by Sabrina López MD at [facility] N/A: Spine Cervical Depuy Spine [id number] / / Depuy Spine Screw Bone 4.0 Cannulated Red Cfx 5.5x30mm [id number] - [id number] Implanted:Qty : 2 on 08/07/2024 by Sabrina López MD at [facility] N/A: Spine Cervical Depuy Spine [id number] / / Depuy Synthes Spine Mati Spinal Posterior Cervical Straight Symphony 4.1d135qs Titanium [id number] - [id number] Implanted:Qty : 2 on 08/07/2024 by Sabrina López MD at [facility] N/A: Spine Cervical Depuy Synthes Spine [id number] / / Depuy Spine Screw Bone 4.0 Cannulated Red Cfx 5.5x30mm [id number] - [id number] Implanted:Qty : 2 on 08/07/2024 by Sabrina López MD at [facility] N/A: Spine Cervical Depuy Spine [id number] / / Depuy Spine Screw Spinal Posterior Cervical Polyaxial Threaded Cannulated Symphony 4.5x32mm Titanium [id number] - [id number] Implanted:Qty : 2 on 08/07/2024 by Sabrina López MD at [facility] N/A: Spine Cervical Depuy Spine [id number] / / Depuy Spine Screw Spinal Posterior Cervical Polyaxial Threaded Cannulated Symphony 5.5x24mm Titanium [id number] - [id number] Implanted:Qty : 2 on 08/07/2024 by Sabrina López MD at [facility] N/A: Spine Cervical Depuy Spine [id number] / / Procedures Procedure Name Priority Date/Time Associated Diagnosis Comments KAPPA/LAMBDA LIGHT CHAINS FREE WITH RATIO, SERUM Routine 11/09/2024 11:43 AM CDT MGUS (monoclonal gammopathy of unknown significance) PROTEIN ELECTROPHORESIS, WITH REFLEX, SERUM Routine 11/09/2024 11:43 AM CDT MGUS (monoclonal gammopathy of unknown significance) COMPREHENSIVE METABOLIC PANEL Routine 11/09/2024 11:43 AM CDT MGUS (monoclonal gammopathy of unknown significance) CBC WITH AUTO DIFFERENTIAL Routine 11/09/2024 11:43 AM CDT MGUS (monoclonal gammopathy of unknown significance) NEURO MR OUTSIDE REFERENCE Routine 10/22/2024 11:[address] OUTSIDE REFERENCE Routine 10/22/2024 11:05 AM CDT XR SPINE CERVICAL 2 OR 3 VIEWS Schedule Routine, Read Routine (OP Routine) 10/04/2024 2:58 PM CDT Cervical stenosis of spinal canal DIAGNOSTIC MAMMOGRAM BILATERAL W JEREMY Schedule Routine, Read Routine (OP Routine) 08/11/2023 10:28 AM CDT Abnormal finding on breast imaging THINPREP IMAGING PAP AND HPV MRNA E6/E7 REFLEX HPV 16,18/45 Routine 05/20/2021 10:45 AM SR. DIRECTOR PRODUCT MANAGEMENT Encounter for well woman exam HEPATITIS C ANTIBODY Routine 12/29/2018 11:48 AM CDT Encounter for hepatitis C screening test for low risk patient OCCULT BLOOD, FECAL (FIT) Routine 07/29/2016 5:40 AM CDT COLONOSCOPY IMAGES 10/09/2013 from Last 3 Months or Most Recently Relevant to Health Maintenance Results * KAPPA/LAMBDA LIGHT CHAINS FREE WITH RATIO, SERUM (11/09/2024 11:43 AM CDT) [place] light chain, free 9.8 3.3 - 19.4 mg/L [facility] Lambda light chain, free 19.7 5.7 - 26.3 mg/L [facility] [place]/Lambda light chains free with ratio 0.50 0.26 - 1.65 [facility] Comment: Free kappa/lambda ratio in serum of normal individuals is 0.26-1.65. Excess production of free kappa or lambda chains can alter this ratio. Monoclonal free light chains are found in serum of patients with multiple myeloma, Waldenstrom's macroglobulinemia, mu-heavy chain disease, primary amyloidosis, light chain deposition disease, monoclonal gammopathy of undetermined significance, and lymphoproliferative disorders. Measurement of free light chain concentration in serum is useful for diagnosis, prognosis, monitoring disease activity and following response to therapy of these disorders. Blood 11/09/2024 11:4 3 AM CDT 11/09/2024 11:44 AM CDT us Rustam Key MD LAB BLOOD ORDERABLES Final R esult [facility] [address] [address] [phone] * (ABNORMAL) CBC with auto differential (11/09/2024 11:43 AM CDT) WBC 5.7 3.8 - 10.8 Thousand/u L [facility] RBC, POC 5.24(H) 3.80 - 5.10 Million/uL [facility] Hgb 14.4 11.7 - 15.5 g/dL [facility] Hct 45.8(H) 35.0 - 45.0 % [facility] MCV 87.4 80.0 - 100.0 fL [facility] MCH 27.5 27.0 - 33.0 pg [facility] MCHC 31.4(L) 32.0 - 36.0 g/dL [facility] Comment: For adults, a slight decrease in the calculated MCHC value (in the range of 30 to 32 g/dL) is most likely not clinically significant; however, it should be interpreted with caution in correlation with other red cell parameters and the patient's clinical condition. Rdw 14.7 11.0 - 15.0 % [facility] Platelets 165 140 - 400 Thousand/u L [facility] MPV 9.6 7.5 - 12.5 fL [facility] Neutrophils, abs 2,941 1,500 - 7,800 cells/uL [facility] Lymphocytes, abs 2,075 850 - 3,900 cells/uL [facility] Monocyte abs 490 200 - 950 cells/uL [facility] Eosinophils, abs 177 15 - 500 cells/uL [facility] Basophils, abs 17 0 - 200 cells/uL [facility] Neutrophils 51.6 % [facility] Lymphocyte pct 36.4 % [facility] Monocytes 8.6 % [facility] Eosinophils 3.1 % [facility] Basophils 0.3 % [facility] Blood 11/09/2024 11:4 3 AM CDT 11/09/2024 11:44 AM CDT Rustam Key MD LAB BLOOD ORDERABLES Final R [facility] Performing Organization Address [facility] Co de Phone Number [facility] [address] [address] [phone] * (ABNORMAL) Protein electrophoresis with reflex, serum with interpretation (11/09/2024 11:43 AM CDT) Pathologist [facility] Protein, sr 7.0 6.1 - 8.1 g/dL [facility] ALBUMIN 4.5 3.8 - 4.8 g/dL [facility] Alpha-1 Globulin 0.2 0.2 - 0.3 g/dL [facility] Alpha-2 Globuliin 0.7 0.5 - 0.9 g/dL [facility] Beta-1 globulin 0.4 0.4 - 0.6 g/dL [facility] Beta 2 globulin 0.4 0.2 - 0.5 g/dL [facility] Gamma globulin 0.8 0.8 - 1.7 g/dL [facility] Abnormal protein band 0.2(H) NONE DETECTED g/dL [facility] SPE, interp [facility] Comment: Restricted band (M-spike) migrating in the beta-2 region. Consider serum immunofixation to rule out a monoclonal protein if clinically indicated. Blood 11/09/2024 11:4 3 AM CDT 11/09/2024 11:44 AM CDT us Rustam Key MD LAB BLOOD ORDERABLES Final R esult Performing Organization Address City/[facility]/ZIP Co de Phone Number [facility] [address] [address] [phone] * (ABNORMAL) Comprehensive metabolic panel (11/09/2024 11:43 AM CDT) Glucose 86 65 - 99 mg/dL [facility] Comment: Fasting reference interval BUN 14 7 - 25 mg/dL [facility] Creatinine 0.66 0.50 - 1.05 mg/dL [facility] eGFR 100 > OR = 60 mL/min/1.7 3m2 [facility] BUN/creat ratio SEE NOTE: 6 - 22 (calc) [facility] Comment: Not Reported: BUN and Creatinine are within reference range. Sodium 139 135 - 146 mmol/L [facility] Potassium, pl 4.3 3.5 - 5.3 mmol/L [facility] Chloride 100 98 - 110 mmol/L [facility] CO2 31 20 - 32 mmol/L [facility] Calcium 10.6(H) 8.6 - 10.4 mg/dL [facility] Protein, sr 7.0 6.1 - 8.1 g/dL [facility] Albumin 4.9 3.6 - 5.1 g/dL [facility] GLOBULIN 2.1 1.9 - 3.7 g/dL (calc) [facility] Alb/glob ratio 2.3 1.0 - 2.5 (calc) [facility] Bilirubin, total 0.9 0.2 - 1.2 mg/dL [facility] Alk phos 63 37 - 153 U/L [facility] AST 19 10 - 35 U/L [facility] ALT (SGPT) 17 6 - 29 U/L [facility] Blood 11/09/2024 11:4 3 AM CDT 11/09/2024 11:44 AM CDT us Rustam Key MD LAB BLOOD ORDERABLES Final R esult [facility] [address] [address] [phone] * Neuro MR Outside Reference (10/22/2024 11:07 AM CDT) Impressions [facility] - 10/22/2024 11:07 AM CDT These images are for Reference purposes only and have not been reviewed by [facility] Radiology. There will be no report generated by a [facility] Radiologist. Narrative [facility] - 10/22/2024 11:07 AM CDT EXAMINATION: Images For Reference Purposes Only us Sabrina López MD IMG MRI PROCEDURES Final Resu lt Performing Organization Address [facility] Co de Phone Number [email or web address] * Neuro CT Outside Reference (10/22/2024 11:05 AM CDT) Impressions [facility] - 10/22/2024 11:05 AM CDT These images are for Reference purposes only and have not been reviewed by [facility] Radiology. There will be no report generated by a [facility] Radiologist. Narrative [facility] - 10/22/2024 11:05 AM CDT EXAMINATION: Images For Reference Purposes Only us Sabrina López MD IMG CT PROCEDURES Final Resul t Performing Organization Address [facility] de Phone Number [email or web address] * XR Spine Cervical 2 or 3 Views (10/04/2024 2:58 PM CDT) Anatomical Region Laterality Modality Spine N/A Computed Radiogr aphy 10/04/2024 3:12 PM CDT Impressions 10/04/2024 3:12 PM CDT Unchanged instrumented posterior spinal fusion of C2-T4 with multilevel posterior decompression and anterior discectomy and instrumented fusion at C3-C5 and C7-T1. Electronically signed by: Elias Sutherland MD Narrative 10/04/2024 3:12 PM CDT EXAMINATION: XR SPINE CERVICAL 2 OR 3 VIEWS HISTORY: Cervical spondylosis FINDINGS: Comparison dated 08/07/2024. Unchanged instrumented posterior spinal fusion of C2-T4 with posterior decompression at C3-C5 and C7-T3. This is combined with anterior instrumented fusion at C3-C5 and C7-T1. Mild prevertebral soft tissue swelling is unchanged. No fracture. Scarring in the lung apices. Procedure Note Elias Sutherland MD - 10/04/2024 EXAMINATION: XR SPINE CERVICAL 2 OR 3 VIEWS HISTORY: Cervical spondylosis FINDINGS: Comparison dated 08/07/2024. Unchanged instrumented posterior spinal fusion of C2-T4 with posterior decompression at C3-C5 and C7-T3. This is combined with anterior instrumented fusion at C3-C5 and C7-T1. Mild prevertebral soft tissue swelling is unchanged. No fracture. Scarring in the lung apices. IMPRESSION: Unchanged instrumented posterior spinal fusion of C2-T4 with multilevel posterior decompression and anterior discectomy and instrumented fusion at C3-C5 and C7-T1. Electronically signed by: Elias Sutherland MD Sabrina López MD IMG XR PROCEDURES Final Resul t * Diagnostic Mammogram Bilateral W Jeremy (08/11/2023 10:28 AM CDT) Anatomical Region Laterality Modality Breast Bilateral Mammography 08/11/2023 11:1 1 AM CDT Impressions 08/11/2023 11:16 AM CDT 1. Benign cluster of cysts in the right breast the 12 o'clock position 3 cm from the nipple, stable for 2 years, therefore deemed benign. 2. No mammographic evidence of malignancy and either breast. OVERALL FINAL ASSESSMENT: BI-RADS Category 2: Benign. RECOMMENDATION: Annual screening mammography is recommended. Dictated by: Ludwin Bob MD, PHD The radiology attending physician has personally reviewed this study, and had reviewed and/or edited this written report and agrees with it. Electronically signed by: Pooja Valadez M.D. Narrative 08/11/2023 11:16 AM CDT EXAMINATION: BILATERAL DIGITAL DIAGNOSTIC MAMMOGRAM INCLUDING CAD AND BILATERAL DIGITAL BREAST TOMOSYNTHESIS; RIGHT BREAST SONOGRAM HISTORY: 58-year-old with probable benign right central breast mass initially detected on diagnostic mammography 05/13/2021. Diagnostic mammography 05/17/2022 demonstrated resolution of the mammographic finding while ultrasound at that time demonstrated a stable 0.6 cm mass with possible fatty hilum. The patient is also due for screening mammography. COMPARISON: Diagnostic mammography 05/17/2022, right breast ultrasound 05/17/2022 as well as additional mammographic imaging back to 05/13/2021. TECHNIQUE: Full field digital mammographic views of BOTH breasts were performed, including computer aided detection (CAD) and BILATERAL digital breast tomosynthesis (DBT). Directed ultrasound evaluation of the RIGHT breast was performed. BREAST PARENCHYMAL COMPOSITION: There are scattered areas of fibroglandular density. MAMMOGRAM FINDINGS: There is no new suspicious abnormality in either breast. The mammographic appearance of the bilateral breasts appears stable with comparisons. SONOGRAM FINDINGS: Ultrasound of the right breast at 12:00 3 cm from the nipple demonstrates a stable small cluster of anechoic cysts which measures 0.6 x 0.2 x 0.4 cm. The appearance is unchanged from prior ultrasounds. Procedure Note Pooja Valadez MD - 08/11/2023 EXAMINATION: BILATERAL DIGITAL DIAGNOSTIC MAMMOGRAM INCLUDING CAD AND BILATERAL DIGITAL BREAST TOMOSYNTHESIS; RIGHT BREAST SONOGRAM HISTORY: 58-year-old with probable benign right central breast mass initially detected on diagnostic mammography 05/13/2021. Diagnostic mammography 05/17/2022 demonstrated resolution of the mammographic finding while ultrasound at that time demonstrated a stable 0.6 cm mass with possible fatty hilum. The patient is also due for screening mammography. COMPARISON: Diagnostic mammography 05/17/2022, right breast ultrasound 05/17/2022 as well as additional mammographic imaging back to 05/13/2021. TECHNIQUE: Full field digital mammographic views of BOTH breasts were performed, including computer aided detection (CAD) and BILATERAL digital breast tomosynthesis (DBT). Directed ultrasound evaluation of the RIGHT breast was performed. BREAST PARENCHYMAL COMPOSITION: There are scattered areas of fibroglandular density. MAMMOGRAM FINDINGS: There is no new suspicious abnormality in either breast. The mammographic appearance of the bilateral breasts appears stable with comparisons. SONOGRAM FINDINGS: Ultrasound of the right breast at 12:00 3 cm from the nipple demonstrates a stable small cluster of anechoic cysts which measures 0.6 x 0.2 x 0.4 cm. The appearance is unchanged from prior ultrasounds. IMPRESSION: 1. Benign cluster of cysts in the right breast the 12 o'clock position 3 cm from the nipple, stable for 2 years, therefore deemed benign. 2. No mammographic evidence of malignancy and either breast. OVERALL FINAL ASSESSMENT: BI-RADS Category 2: Benign. RECOMMENDATION: Annual screening mammography is recommended. Dictated by: Ludwin Bob MD, PHD The radiology attending physician has personally reviewed this study, and had reviewed and/or edited this written report and agrees with it. Electronically signed by: Pooja Valadez M.D. Jillian Cortez MD PhD IMG MAMMO PROCEDURES Final Result * ThinPrep(R) Imaging Pap and HPV mRNA E6/E7 Reflex HPV 16,18/45 (05/20/2021 10:45 AM SR. DIRECTOR PRODUCT MANAGEMENT) CLINICAL INFORMATION: [facility] Comment:Information not prov ided LMP [facility] Comment:INFORMATION NOT PROV IDED Previous Pap [facility] Comment:INFORMATION NOT PROV IDED Prev. Bx [facility] Comment:INFORMATION NOT PROV IDED SOURCE: [facility] Comment:Information not prov ided Pap, specimen adequacy [facility] Comment: Satisfactory for evaluation. Endocervical/transformation zone component present. Age and/or menstrual status not provided HPV interp [facility] Comment:Negative for intraep ithelial lesion or malignancy. COMMENTS [facility] Comment: This Pap test has been evaluated with computer assisted technology. [employer] [facility] Comment: LM, CT(ASCP) CT screening location: [place] [address] [place] [address] Comment [facility] Comment: EXPLANATORY NOTE: The Pap is a screening test for cervical cancer. It is not a diagnostic test and is subject to false negative and false positive results. It is most reliable when a satisfactory sample, regularly obtained, is submitted with relevant clinical findings and history, and when the Pap result is evaluated along with historic and current clinical information. Human papillomavirus RNA, High Risk E6/E7 Not Detected Not Detected [facility] Comment: Methodology: Short Filler Bunch Machine Operator-Mediated Amplification This assay detects E6/E7 viral messenger RNA (mRNA) from 14 high-risk HPV types (16,18,31,33,35,39,45,51,52,56,58,59,66,68). The analytical performance characteristics of this assay have been determined by [facility]. The modifications have not been cleared or approved by the FDA. This assay has been validated pursuant to the CLIA regulations and is used for clinical purposes. For additional information, please refer to http://education.Superbly/faq/QZD919d1 (This link if provided for information/ educational purposes only.) Swab 05/20/2021 10:4 5 AM SR. DIRECTOR PRODUCT MANAGEMENT 05/21/2021 12:27 AM SR. DIRECTOR PRODUCT MANAGEMENT Viridiana Tello NP LAB CYTOLOGY ORDERABLES Final Result Performing Organization Address City/[facility]/ZIP Co de Phone Number [facility] [address] [place] [address] [facility] [address] [place] [address] * Hepatitis C antibody (12/29/2018 11:48 AM CDT) Hep C Ab Negative Negative [facility] Blood specimen (specimen) 12/29/2018 11:48 AM CDT 12/29/2018 6:59 PM CDT Nicholas Ruvalcaba MD LAB MICROBIOLOGY - GENERAL ORDERABLES Final Result Performing Organization Address [facility] de Phone Number [facility] [address] [place] [address] * (ABNORMAL) Occult blood, fecal non neoplasm screening (07/29/2016 5:40 AM CDT) Occult blood, fecal Positive(A) Negative [facility]) Collection date , feces [id number] [facility] Collection time 1, feces 539 [facility]) Stool 07/29/2016 5:40 AM CDT 07/29/2016 6:41 AM CDT Akash Schwab MD LAB BODY FLUIDS AN D STOOLS ORDERABLES Final Result Performing Organization Address City/[facility] Co de Phone Number [facility] ([facility]) [address] [facility] Department [place] [address] * COLONOSCOPY IMAGES (10/09/2013) Anatomical Region Laterality Modality Other Narrative 10/09/2013 Ordered by an unspecified provider. us Historical Provider GI PROCEDURE ORDERABLES F inal Result from Last 3 Months or Most Recently Relevant to Health Maintenance Insurance [facility] H[facility]PPO Address: [facility] [address] [place] [address] [facility] PPO [facility] HMO/PPO Address: [facility] [address] [place] [address] [place] Advance Directives For more information, please contact: [phone] * Full Code (Latest Code Status on File) Date Activated Date Inactivated Comments 08/07/2024 5:32 PM 08/15/2024 5:55 PM * Full Code Date Activated Date Inactivated Comments 08/07/2024 1:40 AM 08/07/2024 5:32 PM * Full Code Date Activated Date Inactivated Comments 05/31/2023 2:49 PM 06/01/2023 9:51 PM * Full Code Date Activated Date Inactivated Comments 01/09/2019 5:06 PM 01/11/2019 4:18 PM * Full Code Date Activated Date Inactivated Comments 10/16/2018 1:13 PM 10/18/2018 2:16 PM Care Teams Psych Specialist Relationship Specialty [place] [address] [place] [id number] PCP - General 09/22/20 [place] [address] [place] [address] Referring Physician Urology 10/17/18 [place] [address] [place] [address] Full Stack Java Developer Obstetrics and Gynecology 05/20/21 [place] [address] [place] [address] Consulting Physician Urology 05/10/24
== END 2024-11-19 09:42 | disposition home or self-care (01) ==
DX: G56.03 Carpal tunnel syndrome, bilateral upper limbs (principal); G56.23 Lesion of ulnar nerve, bilateral upper limbs; M48.02 Spinal stenosis, cervical region; M50.120 Mid-cervical disc disorder, unspecified level
CPT/HCPCS: 95886; 95911

== ENCOUNTER 2024-11-20 13:32 | Outpatient (CLI) | payer BC, SELFPAY ==
--- OUTSIDE RECORDS SUMMARY | 2024-11-20 13:50 | XMS_ITS | Clinical Summary ---
Author Organization [facility] Address [address] [place] [address] Care Team Providers Care Electrical Tryout Person Name Role Phone Marcelino Fuller MD Unavailable [phone] David Kapadia DO Primary Care Provider [phone] Rosalinda Lima MD Unavailable [phone] Jillian Ji MD Unavailable Allergies Active Allergy [...] & Plan (08/14/2024 3:06 PM CDT): --08/09 SEALER SANDER dc'd used 7/7 times overnight. Not using [...] 05/15/2020 Assessment & Plan (05/15/2020 3:18 PM SUTURE GAUGER): Patient is symptomatic with GERD. He has been on Dexilant which helps her however she read there were some side effects and excellent that may affect her osteoporosis. She has an disk operator who specialize in osteoporosis advised her to contact disk operator regarding this. In the meantime begun discontinued excellent and start on famotidine. 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 Does mention she has occasional tickle in the throat less than once a day. This symptom can be caused by lisinopril right now is tolerable so we will not change medications. Assessment & Plan (02/12/2020 4:14 PM SUTURE GAUGER): Patient has been checking her blood pressure [...] is completed she will be seeing her wellness spa manager next month. Remainder of the issues recommendations [...] Description 11/14/2024 10:45 AM CDT Office Visit [facility] Hematology [facility]0 [facility] Floor [address] [place] [address] Rustam Key MD MGUS (monoclonal gammopathy of unknown significance) 11/13/2024 Telephone [facility] [address] [place] [address] for Advanced Medicine [address] [address] Lanette Hogan MD Scheduling Appointments 10/29/2024 2:30 PM CDT Office Visit [facility] Neurosurgery [address] [place] [address] Office [facility] [address] [place] [phone] Sabrina López MD Lumbar radiculopathy (Primary Dx) 10/29/2024 Telephone [facility] Neurosurgery [address] [place] [address] Office [place] [address] [place] [address] Sabrina López MD 10/22/2024 11:07 AM CDT - 10/22/2024 11:59 PM CDT Hospital Encounter [facility] [address] [place] [address] Discharge Disposition: Discharge to home or self care 10/22/2024 11:05 AM CDT - 10/22/2024 11:59 PM CDT Hospital Encounter [facility] [address] [place] [address] Discharge Disposition: Discharge to home or self care 10/16/2024 Telephone [facility] Neurosurgery [address] [facility] Office Building 4 [address] [place] [address] Sabrina López MD 10/08/2024 Telephone [facility] Scheduling [address] [place] [address] Amy Dc 10/04/2024 3:15 PM CDT Office Visit [address] Office [facility] 4 [address] [place] [address] Sabrina López MD Cervical stenosis of spinal canal (Primary Dx) 10/04/2024 2:44 PM CDT - 10/04/2024 11:59 PM CDT Hospital Encounter [facility] [address] [place] [address] [address] [place] [phone] Cervical stenosis of spinal canal Discharge Disposition: Discharge to home or self care 10/04/2024 Orders Only [facility] Neurosurgery [address] [place] [address] Office [facility] [address] [place] [address] Sabrina López MD Cervical stenosis of spinal canal (Primary Dx); Low back pain, non-specific; 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 09/27/2024 Orders Only [facility] Neurosurgery [address] [place] [address] Office [facility] 4 [address] [place] [address] Sabrina López MD Cervical stenosis of spinal canal (Primary Dx) 08/20/2024 Orders Only [facility] Neurosurgery [address] [place] [address] Office [facility] 4 [address] [place] [address] Sabrina López MD Cervical stenosis of spinal [...] on file Legal Sex Female 3:47 PM SUTURE GAUGER Gender Identity Female 01/22/2020 9:25 AM CDT [...] this topic Medical Devices Implanted Type Area Statement Distribution Clerk Device Identifier Shelf Expiration Date Model / Serial / Lot Cerapedics Inc 700-025 I Factor Allograft Putty Syringe Graft 2.5cc Bone - [id number] Implanted:Qty : 1 on 08/28/2019 by Chris Mckay MD at [facility] N/A: Spine Cervical Cerapedics Inc 12/05/2021 700-025 / / [place] Plate Implanted:Qty : 1 on 08/28/2019 by Chris Mckay MD at [facility] N/A: Spine Cervical Nuvasive Inc Description:18mm Cage Spinal Modulus Cervical [id number] 10 Deg - [id number] Implanted:Qty : 1 on 08/28/2019 by Chris Mckay MD at [facility] Nuvasive Inc [id number] 10/15/2023 [id number] / / [id number] Nuvasive Creative Spine Tech [id number] [place] R 4mm 13mm Self Tap Variable Angle Spine Screw Bone - [id number] Implanted:Qty : 3 on 08/28/2019 by Chris Mckay MD at [facility] N/A: Spine Cervical Nuvasive Inc [id number] / / Nuvasive Creative Spine Tech [id number] [place] R 4.5mm 13mm Self Tap Variable Angle Spine Screw Bone - [id number] Implanted:Qty : 1 on 08/28/2019 by Chris Mckay MD at [facility] N/A: Spine Cervical Nuvasive Inc [id number] / / Víctor Biomet Spine Inc Maxan 4mm 14mm Variable Angle Self Drill Spine Screw Bone [id number] - [id number] Implanted:Qty : 4 on 05/31/2023 by Chris Mckay MD at [facility] N/A: Spine Cervical VÍCTOR BIOMET SPINE INC [id number] / / Víctor Biomet Spine Inc Maxan 4mm 14mm Fix Angle Spine Screw Bone [id number] - [id number] Implanted:Qty : 2 on 05/31/2023 by Chris Mckay MD at [facility] N/A: Spine Cervical VÍCTOR [employer]OM[employer] SP[employer] INC [id number] / / Cerapedics Inc Graft Bone Filler Peptide Enhanced Syr I Factor 1cc Putty 700-010 - [id number] Implanted:Qty : 1 on 05/31/2023 by Chris Mckay MD at [facility] N/A: Spine Cervical Cerapedics Inc [id number] 09/01/2025 700-010 / / [id number] Globus Medical Cage Spinal Cervical 7 Degree Acif Hedron [id number] Titanium Porous 1211.4617s - [id number] Implanted:Qty : 1 on 05/31/2023 by Chris Mckay MD at [facility] N/A: Spine Cervical [employer] [id number] 03/17/2033 1211.4617S / / [id number] [employer]ob[employer] Cage Spinal Cervical 7 Degree Acif Hedron [id number] Titanium Porous 1211.4617s - [id number] Implanted:Qty : 1 on 05/31/2023 by Chris Mckay MD at [facility] N/A: Spine Cervical [employer] [id number] 03/17/2033 1211.4617S / / [id number] Víctor Biomet Spine Inc Maxan 26mm Level 2 Spine Cervical Anterior Plate Bone Titanium 14-174776 - [id number] Implanted:Qty : 1 on 05/31/2023 by Chris Mckay MD at [facility] N/A: Spine Cervical VÍCTOR [employer] SP[employer] INC [id number] / / Arthrex Inc Graft Bone Filler Dbm Syringe Pure 10cc Allosync Abs - [id number] - [id number] Implanted:Qty : 1 on 08/07/2024 by Sabrina López MD at [facility] N/A: Spine Cervical Arthrex Inc [id number] 01/09/2029 / [id number] / Arthrex Inc Graft Bone Filler Allosync Pure 5cc Putty - [id number] - [id number] Implanted:Qty : 1 on 08/07/2024 by Sabrina López MD at [facility] N/A: Spine Cervical Arthrex Inc [id number] 01/09/2029 / [id number] / Dci [employer]or [employer] Inc Frozen 1-4mm Graft 60ml Bone Cancellous [id number] - [id number] - [id number] Implanted:Qty : 1 on 08/07/2024 by Sabrina López MD at [facility] N/A: Spine Cervical Dci [employer] Inc [id number] 07/06/2027 [id number] / [id number] / Arthrex Inc Graft Bone Filler Scaffold Arthrocell Plus 5.0cc Abs-2089-08 - [id number] 50-24 - [id number] Implanted:Qty : 1 on 08/07/2024 by Sabrina López MD at [facility] N/A: Spine Cervical Arthrex Inc 08/03/2025 ABS-2089-08 / [id number] / Depuy Synthes Spine Screw Spinal Set Posterior Cervical Solid Symphony Titanium [id number] - [id number] Implanted:Qty : 17 on 08/07/2024 by Sabrina López MD at [facility] N/A: Spine Cervical Depuy Synthes Spine [id number] / / Depuy Spine Screw Spinal Posterior Cervical Polyaxial Threaded Cannulated Symphony 4x22mm [id number] - [id number] Implanted:Qty : 1 on 08/07/2024 by Sabrina López MD at [facility] N/A: Spine Cervical Depuy Spine [id number] / / Depuy Spine Screw Spinal Posterior Cervical Polyaxial Threaded Cannulated Symphony 4x24mm [id number] - [id number] Implanted:Qty : 1 on 08/07/2024 by Sabrina López MD at [facility] N/A: Spine Cervical Depuy Spine [id number] / / Depuy Spine Screw Bone 4.0 Shaft Cannulated Red 4.0x30mm [id number] - [id number] Implanted:Qty : 1 on 08/07/2024 by Sabrina López MD at [facility] N/A: Spine Cervical Depuy Spine [id number] / / Depuy Spine Screw Spinal Posterior Cervical Polyaxial Threaded Cannulated Symphony 3.5x14mm Titanium [id number] - [id number] Implanted:Qty : 2 on 08/07/2024 by Sabrina López MD at [facility] N/A: Spine Cervical Depuy Spine [id number] / / Depuy Spine Screw Spinal Posterior Cervical Polyaxial Threaded Cannulated Symphony 3.5x16mm Titanium [id number] - [id number] Implanted:Qty : 6 on 08/07/2024 by Sabrina óLpez MD at [facility] N/A: Spine Cervical Depuy Spine [id number] / / Depuy Spine Screw Bone 4.0 Cannulated Red Cfx 5.5x30mm [id number] - [id number] Implanted:Qty : 2 on 08/07/2024 by Sabrina López MD at [facility] N/A: Spine Cervical Depuy Spine [id number] / / Depuy Synthes Spine Mati Spinal Posterior Cervical Straight Symphony 4.5c606ju Titanium [id number] - [id number] Implanted:Qty : 2 on 08/07/2024 by Sabrina López MD at [facility] N/A: Spine Cervical Depuy Synthes Spine [id number] / / Depuy Spine Screw Bone 4.0 Cannulated Red Cfx 5.5x30mm [id number] - [id number] Implanted:Qty : 2 on 08/07/2024 by Sabrina López MD at [facility] N/A: Spine Cervical Depuy Spine [id number] / / Depuy Spine Screw Spinal Posterior Cervical Polyaxial Threaded Cannulated Symphony 4.5x32mm Titanium [id number] - [id number] Implanted:Qty : 2 on 08/07/2024 by Sabrina López MD at [facility] N/A: Spine Cervical Depuy Spine [id number] / / Depuy Spine Screw Spinal Posterior Cervical Polyaxial Threaded Cannulated Symphony 5.5x24mm Titanium [id number] - [id number] Implanted:Qty : 2 on 08/07/2024 by Sabrina López MD at [facility] N/A: Spine Cervical Depuy Spine [id number] / / Procedures Procedure Name Priority Date/Time [...] REFLEX HPV 16,18/45 Routine 05/20/2021 10:45 AM SUTURE GAUGER Encounter for well woman exam HEPATITIS C ANTIBODY Routine 12/29/2018 11:48 AM CDT Encounter for hepatitis C screening test for low risk patient OCCULT BLOOD, FECAL (FIT) Routine 07/29/2016 5:40 AM CDT COLONOSCOPY IMAGES 10/09/2013 from Last 3 Months or Most Recently Relevant to Health Maintenance Results * KAPPA/LAMBDA LIGHT CHAINS FREE WITH RATIO, SERUM (11/09/2024 11:43 AM CDT) [place] light chain, free 9.8 3.3 - 19.4 mg/L [facility] Lambda light chain, free 19.7 5.7 - 26.3 mg/L [facility] [place]/Lambda light chains free with ratio 0.50 0.26 - 1.65 [facility] Comment: Free kappa/lambda ratio in serum of [...] LAB BLOOD ORDERABLES Final R esult [facility] [address] [address] * (ABNORMAL) CBC with auto differential (11/09/2024 [...] Key MD LAB BLOOD ORDERABLES Final R [facility] Performing Organization Address [facility] Co de Phone Number [facility] [address] [address] * (ABNORMAL) Protein electrophoresis with reflex, serum with interpretation (11/09/2024 11:43 AM CDT) Pathologist [facility] Protein, sr 7.0 6.1 - 8.1 g/dL [facility] ALBUMIN 4.5 3.8 - 4.8 g/dL [facility] Alpha-1 Globulin 0.2 0.2 - 0.3 g/dL [facility] Alpha-2 Globuliin 0.7 0.5 - 0.9 g/dL [facility] Beta-1 globulin 0.4 0.4 - 0.6 g/dL [facility] Beta 2 globulin 0.4 0.2 - 0.5 g/dL [facility] Gamma globulin 0.8 0.8 - 1.7 g/dL [facility] Abnormal protein band 0.2(H) NONE DETECTED g/dL [facility] SPE, interp [facility] Comment: Restricted band (M-spike) migrating in the beta-2 region. Consider serum immunofixation to rule out a monoclonal protein if clinically indicated. Blood 11/09/2024 11:4 3 AM CDT 11/09/2024 11:44 AM CDT us Rustam Key MD LAB BLOOD ORDERABLES Final R esult Performing Organization Address City/[facility]/ZIP Co de Phone Number [facility] [address] [address] * (ABNORMAL) Comprehensive metabolic panel (11/09/2024 11:43 [...] BLOOD ORDERABLES Final R esult [facility] [address] [address] * Neuro MR Outside Reference (10/22/2024 11:07 AM CDT) Impressions [facility] - 10/22/2024 11:07 AM CDT These images are for Reference purposes only and have not been reviewed by [facility] Radiology. There will be no report generated by a [facility] Radiologist. Narrative [facility] - 10/22/2024 11:07 AM CDT EXAMINATION: Images For Reference Purposes Only us Sabrina López MD IMG MRI PROCEDURES Final Resu lt Performing Organization Address [facility] Co de Phone Number [email or web address] * Neuro CT Outside Reference (10/22/2024 11:05 AM CDT) Impressions [facility] - 10/22/2024 11:05 AM CDT These images are for Reference purposes only and have not been reviewed by [facility] Radiology. There will be no report generated by a [facility] Radiologist. Narrative [facility] - 10/22/2024 11:05 AM CDT EXAMINATION: Images For Reference Purposes Only us Sabrina López MD IMG CT PROCEDURES Final Resul t Performing Organization Address [facility] de Phone Number [email or web address] * XR Spine [...] E6/E7 Reflex HPV 16,18/45 (05/20/2021 10:45 AM SUTURE GAUGER) CLINICAL INFORMATION: [facility] Comment:Information not prov ided LMP [facility] Comment:INFORMATION NOT PROV IDED Previous Pap [facility] Comment:INFORMATION NOT PROV IDED Prev. Bx [facility] Comment:INFORMATION NOT PROV IDED SOURCE: [facility] Comment:Information not prov ided Pap, specimen adequacy [facility] Comment: Satisfactory for evaluation. Endocervical/transformation zone component present. Age and/or menstrual status not provided HPV interp [facility] Comment:Negative for intraep ithelial lesion or malignancy. COMMENTS [facility] Comment: This Pap test has been evaluated with computer assisted technology. Quill Reamer [facility] Comment: LM, CT(ASCP) CT screening location: [place] [address] [place] [address] Comment [facility] Comment: EXPLANATORY NOTE: The Pap is a [...] High Risk E6/E7 Not Detected Not Detected [facility] Comment: Methodology: Outside Sales Inspector-Mediated Amplification This assay detects E6/E7 viral messenger RNA (mRNA) from 14 high-risk HPV types (16,18,31,33,35,39,45,51,52,56,58,59,66,68). The analytical performance characteristics of this assay have been determined by [facility]. The modifications have not been cleared or approved by the FDA. This assay has been validated pursuant to the CLIA regulations and is used for clinical purposes. For additional information, please refer to http://education.Xiaozhu.com/faq/YGM826n7 (This link if provided for information/ educational purposes only.) Swab 05/20/2021 10:4 5 AM SUTURE GAUGER 05/21/2021 12:27 AM SUTURE GAUGER Viridiana Tello NP LAB CYTOLOGY ORDERABLES Final Result Performing Organization Address City/[facility]/ZIP Co de Phone Number Code71[facility] [address] [place] [address] [facility] [address] [place] [address] * Hepatitis C antibody (12/29/2018 11:48 AM CDT) Hep C Ab Negative Negative [facility] Blood specimen (specimen) 12/29/2018 11:48 AM CDT 12/29/2018 6:59 PM CDT Nicholas Ruvalcaba MD LAB MICROBIOLOGY - GENERAL ORDERABLES Final Result Performing Organization Address [facility] de Phone Number [facility] [address] [place] [address] * (ABNORMAL) Occult blood, fecal non neoplasm screening (07/29/2016 5:40 AM CDT) Occult blood, fecal Positive(A) Negative [facility] Collection date , feces [id number] [facility] Collection time 1, feces 539 [facility] Stool 07/29/2016 5:40 AM CDT 07/29/2016 6:41 AM CDT Akash Schwab MD LAB BODY FLUIDS AN D STOOLS ORDERABLES Final Result Performing Organization Address City/[facility] Co de Phone Number [facility] [address] [facility] [place] [address] * COLONOSCOPY IMAGES (10/09/2013) Anatomical Region Laterality Modality Other Narrative 10/09/2013 Ordered by an unspecified provider. us Historical Provider GI PROCEDURE ORDERABLES F inal Result from Last 3 Months or Most Recently Relevant to Health Maintenance Insurance [facility] CHOICE PLUS [facility] HMO/PPO Address: [facility] [address] [place] [address] [facility] PPO [place] Advance Directives For more information, please contact: [phone] * Full Code (Latest Code Status on [...] 1:13 PM 10/18/2018 2:16 PM Care Teams Electrical Tryout Person Relationship Specialty [place] [address] [place] [address] PCP - General 09/22/20 [place] [address] [place] [address] Referring Physician Urology 10/17/18 [place] [address] [place] [address] Cold Roll Inspector Obstetrics and Gynecology 05/20/21 [place] [address] [place] [address] Consulting Physician Urology 05/10/24
--- OUTSIDE RECORDS SUMMARY | 2024-11-20 13:50 | XMS_ITS | Encounter Summary ---
Author Organization [facility] Address [address] [place] [address] Phone Care Team Providers Care Machine Packaging Technician Name Role Phone Marcelino Fuller MD Unavailable [phone] David Kapadia DO Primary Care Provider [phone] Rosalinda Lima MD Unavailable Jillian Ji MD Unavailable Encounter Details Date Type Department Care Team (Late st Contact Info) Description 08/04/[address] Medical Office Building [address] [place] [address] Suman Silvestre MD [address] [address] Social History Tobacco Use Types [...] on file 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 Gender Identity Female 01/22/2020 9:25 AM CDT [...] documented as of this encounter Care Teams Machine Packaging Technician Relationship Specialty [place] [address] [place] [address] PCP - General 09/22/20 [place] [address] [place] [address] Referring Physician Urology 10/17/18 [place] [address] [place] [address] Liquid Center Assembler Obstetrics and Gynecology 05/20/21 [place] [address] [place] [address] Consulting Physician Urology 05/10/24 documented as of this encounter
--- NOTE | 2024-11-20 14:00 | NEURO_ITS ---
Impression: # Complains of leg weakness and numbness along with balance issues. ? # Normal Nerve Conduction Study # Needle/ EMG exam ? # Clinical correlation recommended Nerve Conduction Studies ?Stim Site NR Peak (ms) P-T Amp (?V) Site1 Site2 Delta-P (ms) Dist (cm) [place]by (m/s) Left Sup Fibular Anti Sensory (Ant Lat Mall) 14 cm ? 3.0 7.5 14 cm Ant Lat Mall 3.0 16.0 53 Right Sup Fibular Anti Sensory (Ant Lat Mall) 14 cm ? 3.1 15.9 14 cm Ant Lat Mall 3.1 16.0 52 Left Sural Anti Sensory (Lat Mall) Calf ? 3.8 4.4 Calf Lat Mall 3.8 16.0 42 Right Sural Anti Sensory (Lat Mall) Calf ? 3.2 5.8 Calf Lat Mall 3.2 16.0 50 ?Stim Site NR Onset (ms) O-P Amp (mV) Site1 Site2 Delta-0 (ms) Dist (cm) [place] (m/s) Left Peroneal Motor (Vastus Med) Ankle ? 4.1 2.6 Popit Ankle 6.7 35.0 52 Popit ? 10.8 2.2 Right Peroneal Motor (Vastus Med) Ankle ? 3.8 1.4 Popit Ankle 7.0 36.0 51 Popit ? 10.8 0.9 Left Tibial Motor (Abd Tinsley Brev) Ankle ? 4.1 5.8 Knee Ankle 7.4 37.0 50 Knee ? 11.5 4.6 Right Tibial Motor (Abd Tinsley Brev) Ankle ? 3.5 6.3 Knee Ankle 6.8 36.0 53 Knee ? 10.3 6.3 F Wave Studies ?NR F-Lat (ms) L-R F-Lat (ms) Left Peroneal (Mrkrs) (EDB) ? 42.74 1.73 Right Peroneal (Mrkrs) (EDB) ? 44.46 1.73 Left Tibial (Mrkrs) (Abd Hallucis) ? 44.77 3.21 Right Tibial (Mrkrs) (Abd Hallucis) ? 41.57 3.21 Electromyography ?Side Muscle Nerve Root Ins Act Fibs Amp Dur Recrt Comment Right AntTibialis Dp Br Fibular L4-5 Nml Nml Nml Nml Nml Right Gastroc Tibial S1-2 Nml Nml Nml Nml Nml Right Fibularis Long Sup Br Fibular L5-S1 Nml Nml Nml Nml Nml Right Flex Dig Long Tibial L5-S2 Nml Nml Nml Nml Nml Right Ext Dig Brev Dp Br Fibular L5, S1 Nml Nml Nml Nml Nml Right QuadratusFem QuadFemoris L4-5, S1 Nml Nml Nml Nml Nml Left AntTibialis Dp Br Fibular L4-5 Nml Nml Nml Nml Nml Left Gastroc Tibial S1-2 Nml Nml Nml Nml Nml Left Fibularis Long Sup Br Fibular L5-S1 Nml Nml Nml Nml Nml Left Flex Dig Long Tibial L5-S2 Nml Nml Nml Nml Nml Left Ext Dig Brev Dp Br Fibular L5, S1 Nml Nml Nml Nml Nml Left QuadratusFem QuadFemoris L4-5, S1 Nml Nml Nml Nml Nml
== END 2024-11-20 13:33 | disposition home or self-care (01) ==
LOC: ANHNEURO 13:33
DX: R20.0 Anesthesia of skin (principal); R53.1 Weakness; R26.89 Other abnormalities of gait and mobility; M48.02 Spinal stenosis, cervical region
CPT/HCPCS: 95886; 95910